=== PATIENT | male | born 1970 | race Caucasian/White ===

== ENCOUNTER 2017-03-08 22:15 | Emergency (ER) | payer SELFPAY ==
[~2017-03-08 22:15] MED LIST: LEXAPRO PO; LORTAB 7.5-5001 TAB PO; NO MEDICATIONS; SOMA PO
== END 2017-03-08 23:20 | disposition left against medical advice (07) ==
LOC: CED 22:15
DX: Z53.21 Procedure and treatment not carried out due to patient leaving prior to being seen by health care provider (principal)